=== PATIENT | female | born 1980 | race Caucasian/White ===

== ENCOUNTER 2022-07-29 17:58 | Emergency (ER) | payer OTHER, SELFPAY ==
[2022-07-29 17:59] VITALS: BP 144/87; PULSE 98; RESP 18; TEMP 36.5; O2SAT 98; BMI 35.5
--- NOTE | 2022-07-29 18:28 | CT_ITS ---
PROCEDURE INFORMATION: Exam: CT Abdomen And Pelvis Without Contrast Exam date and time: 07/29/2022 7:34 PM Age: 42 years old Clinical indication: Abdominal pain; Flank; Left; Prior surgery; Surgery date: 6+ months; Surgery type: Tubal ligation; Additional info: L flank pain, h/o kidney stones TECHNIQUE: Imaging protocol: Computed tomography of the abdomen and pelvis without contrast. Radiation optimization: All CT scans at this facility use at least one of these dose optimization techniques: automated exposure control; mA and/or kV adjustment per patient size (includes targeted exams where dose is matched to clinical indication); or iterative reconstruction. COMPARISON: [employer]/O MRI-L-SPINE W/O 08/21/2015 8:43 AM FINDINGS: Liver: Low attenuation hepatic lesions measuring up to 5 mm in diameter are incompletely characterized, but are likely cysts. No followup imaging is recommended. Gallbladder and bile ducts: Normal. No calcified stones. No ductal dilation. Pancreas: Normal. No ductal dilation. Spleen: Normal. No splenomegaly. Adrenal glands: Normal. No mass. Kidneys and ureters: Possible tiny nonobstructing bilateral renal calculi. Stomach and bowel: Unremarkable. No obstruction. No mucosal thickening. Appendix: Unremarkable appendix. Intraperitoneal space: Unremarkable. No free air. No significant fluid collection. Vasculature: The arteries demonstrate minimal atherosclerotic disease. Lymph nodes: Unremarkable. No enlarged lymph nodes. Urinary bladder: Mild left hydronephrosis secondary to a 3 mm calculus at the UVJ protruding into the urinary bladder. Reproductive: Unremarkable as visualized. Bones/joints: Unremarkable. No acute fracture. Soft tissues: Tiny fat containing umbilical hernia. IMPRESSION: 1. Mild left hydronephrosis secondary to a 3 mm calculus at the UVJ protruding into the urinary bladder. 2. Possible tiny nonobstructing bilateral renal calculi.
--- NOTE | 2022-07-29 18:29 | HMH.EDGENADL ---
Discharge Plan Disposition Patient Disposition: Home, Self-Care Condition: Good Prescriptions Prescriptions: New oxycodone-acetaminophen [Percocet] 5-325 mg tablet 1 tab PO Q6H PRN (Reason: pain) Qty: 10 0RF ketorolac 10 mg tablet 10 mg PO Q8H PRN (Reason: pain) Qty: 10 0RF Rx Instructions: received IV toradol in the ER tamsulosin [Flomax] 0.4 mg capsule 0.4 mg PO HS Qty: 10 0RF ondansetron HCl 4 mg tablet 4 mg PO Q8H PRN (Reason: nausea and vomiting) Qty: 10 0RF Activity Restrictions/Add. Instructions Additional Instructions/Restrictions: Flomax as prescribed. Toradol and Percocet as needed for pain. Zofran as needed for nausea. Additional instructions for KIDNEY STONE (URETERAL CALCULUS): See your primary care provider as soon as possible for further evaluation. Drink plenty of fluids. Strain your urine and save any stones you catch. Return immediately if you develop a fever or have uncontrollable vomiting or uncontrollable pain. Additional instructions for CONTROLLED SUBSTANCES: You have been prescribed a medication that is a controlled substance. Controlled substances include pain medications known as opiates and sedative nerve medications known as benzodiazepines. Tramadol, fioricet, and gabapentin are also controlled substances. Some common opiates include: Codeine (such as Tylenol #3) Hydrocodone (Vicodin, Lortab, Lorcet, [place]) Oxycodone (Percocet, Percodan, Oxycodone, Oxy IR) Some common benzodiazepines include: Diazepam (Valium) Lorazepam (Ativan) Alprazolam (Xanax) Clonazepam (Klonopin) Oxazepam (Serax) All of these controlled substances are highly addictive and frequently abused. Misuse can and frequently does lead to addiction as well as overdose and . Medication should be stored in a locked cabinet or other secure storage unit. Do not store the medication in a motor vehicle. Short term supplies, 3 days or less, are prescribed because of the highly addictive nature of the medication. Any of the controlled substance medication NOT taken should be disposed of properly and NOT SAVED. The recommended method of disposing of unused medications is: Place the medicines in a sealable plastic bag. If the medicine is a solid, crush it or add water to dissolve it. Add something undesirable (cat litter, coffee grounds, etc.) Dispose of sealed bag in household trash Do not flush or pour unused medicines down a sink or drain. Controlled substances should not be shared, given away or sold. Because of the addictive nature and frequent abuse, these medications are sometimes stolen. These medications should be kept in a safe place where they cannot be stolen. Do not keep them in your car or purse. Lost or stolen prescriptions for controlled substances WILL NOT BE REFILLED in this emergency department, regardless of whether a police report was filed. Clinical Impressions Clinical Impression: Left ureteral calculus Instructions Patient Instructions: DI for Kidney Stones Discharge ED Provider: Charlie Anguiano General Adult HPI General Chief complaint: Abdominal Pain Stated complaint: kidney stone Time Seen by Provider: 07/29/22 18:22 Mode of Arrival: EMS Source of Information: Patient Limitations: No Limitations Description of Symptoms (Recalled from ER Triage Doc. by RN): PT DESCRTBES SEVERE STABBING LEFT FLANK PAIN THAT RADIATES TO LEFT LOWER ABDOMINAL AREA. PT STATES THAT SHE IS CURRENTLY UNDERGOING ABX THERAPY FOR BRONCHITIS SINCE 07/27. History of Present Illness HPI narrative: Patient brought in by ambulance. States that about 5 PM she was sitting on the bed watching TV when she got sudden onset of pain in her left lower lumbar/flank area radiating around to her left abdomen and into her groin. She went to the bathroom and urinated. She did not see any hematuria. She says after urinating the pain became more severe. No vomiting. No fever.
[2022-07-29 18:31] LABS: Microscopic, Urine URINE MICROSCOPIC (MICROSCOPIC)
[2022-07-29 18:33] LABS: Basophils # 0.1 K/mm3 (0-0.2); Basophils % 0.8 % (0.1-2.0); Eosinophils % 0.2 % (0.1-12.0); Hematocrit 41.4 % (37.0-47.0); Hemoglobin 13.9 g/dL (12.2-16.2); Lymphocytes # 3.6 K/mm3 (0.7-4.5); Lymphocytes % 28.2 % (10-50); Mean Corpuscular HGB Conc 33.5 g/dL (31.8-35.4); Mean Corpuscular Volume 98.4 fl (81-99); Mean Platelet Volume 8.2 fl (7.4-10.4); Monocytes # 0.5 K/mm3 (0.1-1.0); Monocytes % 3.5 % (1.7-9.3); Neutrophils # 8.6 K/mm3 (1.8-7.8); Neutrophils % 67.2 % (37.0-80.0); Platelet Count 253 K/mm3 (142-424); Red Blood Count 4.21 M/mm3 (4.20-5.40); Red Cell Distribution Width 12.8 % (11.5-17.5); White Blood Count 12.8 K/mm3 (4.8-10.8)
[2022-07-29 18:39] LABS: Appearance,Urine CLEAR (Clear); Blood, Urine 3+ (Negative); Color,Urine YELLOW (Yellow); Glucose,Urine (UA) Negative (Negative); Ketones,Urine Negative (Negative); Leukocyte Esterase,Urine Negative (Negative); Nitrate,Urine Negative (Negative); PH,Urine 5.5 (5.0-8.5); Protein,Urine TRACE (Negative); Specific Gravity, Urine >= 1.030 (1.005-1.030); Urobilinogen,Urine 0.2 EU/dl (0.2)
[2022-07-29 18:41] LABS: Alanine Aminotransferase 21 U/L (12-78); Albumin Level 4.8 g/dl (3.5-5.0); Albumin/Globulin Ratio 1.8 (1.1-1.8); Alkaline Phosphatase 57 U/L (38-126); Anion Gap 17.3 mEq/L (5-15); Aspartate Amino Transferase 31 U/L (14-36); Bilirubin,Total 0.3 mg/dl (0.2-1.3); Blood Urea Nitrogen 18 mg/dl (7-17); Calcium 9.9 mg/dl (8.4-10.2); Carbon Dioxide 24 mmol/L (22.0-30.0); Chloride 103 mmol/L (98-107); Creatinine Clearance Estimated 150 mL/min (50-200); Estimated Glomerular Filt Rate 69 ml/min (>60); GFR (African American) 83 ML/MIN (>60); Globulin 2.7 g/dL (1.3-3.2); Glucose 115 mg/dl (74-100); Lipase 64 U/L (23-300); Potassium 3.3 mmoL/L (3.5-5.1); Sodium 141 mmol/L (136-145); Total Protein,Serum 7.5 g/dl (6.3-8.2)
[2022-07-29 18:43] LABS: Urine Pregnancy, HCG Qual. Negative (Negative)
[2022-07-29 18:44] LABS: Bilirubin,Urine 1+ (Negative)
[2022-07-29 20:31] LABS: Bacteria,Urine Trace /lpf; WBC,Urine Occasional #/hpf (0-3)
[2022-07-29 20:58] VITALS: BP 137/78; PULSE 89; RESP 18; TEMP 36.5; O2SAT 98
== END 2022-07-29 21:00 | disposition home or self-care (01) ==
PROVIDERS: Emergency Provider Emergency Medicine
DX: N20.1 Calculus of ureter (principal); Z88.6 Allergy status to analgesic agent; Z72.0 Tobacco use
CPT/HCPCS: 74176; 80053; 81001; 81025; 83690; 85025; 96374; 99284

== ENCOUNTER → 2023-06-14 12:00 | Outpatient (CLI) | payer OTHER, SELFPAY | PROVIDERS: PCP Nurse Practitioner | DX: R10.2 Pelvic and perineal pain (principal) ==

== ENCOUNTER → 2023-06-29 09:46 | Outpatient (CLI) | payer OTHER, SELFPAY ==
--- NOTE | 2023-06-29 09:46 | MM_ITS ---
PROCEDURE INFORMATION: Exam: Bilateral Screening 3D Mammography Exam date and time: 06/29/2023 9:50 AM Age: 43 years old Clinical indication: Baseline. No family history of breast cancer. TECHNIQUE: Imaging protocol: Bilateral Screening tomosynthesis and 2D mammography including computer-aided detection (CAD) when performed. COMPARISON: No relevant prior studies available. FINDINGS: MAMMOGRAPHY: Breast composition: There are scattered areas of fibroglandular density. Mass: None. Architectural distortion: None. Calcifications: No suspicious calcifications. Asymmetric density: None. Skin thickening: None. Axillary adenopathy: None. IMPRESSION: No mammographic evidence of malignancy. Annual screening is recommended unless otherwise clinically indicated. ASSESSMENT: BI-RADS Category 1: Negative
--- NOTE | 2023-06-29 09:46 | US_ITS ---
PROCEDURE: US TRANSVAGINAL CLINICAL INDICATION: pelvic pain COMPARISON: No exams were available for comparison FINDINGS: Transabdominal sonographic images of the pelvis were obtained. UTERUS: 9.0 cm x 5.8 cmx 4.3 cm with a combined endometrial thickness of 9.6mm. Uterus is anteverted. There are multiple small nabothian cysts within the cervix. There is a small amount of fluid within the endometrial cavity. There is a small posterior fibroid measuring 0.7 cm x 0.6 cm x 0.8 cm LEFT OVARY: 3.2 cmx2.5 cmx2.0 cm with a volume of 8.4ml. There are multiple small follicles within the left ovary. The largest follicle measures 1.6 cm by 1.0 cm x 0.8 cm. RIGHT OVARY: 3.5 cmx 2.4 cmx2.6 cm with a volume of 11.5ml. Both ovaries are seen and appear normal. Doppler flow to both ovaries are seen. There is trace fluid in the cul-de-sac. IMPRESSION: 1. Anteverted uterus normal in shape and size. 2. There is a small 0.8 cm posterior fibroid. 3. Both ovaries are seen and appear normal. There are multiple follicles in the left ovary. 4. Trace fluid in the cul-de-sac Dictated by: Luca Darby MD 06/29/2023 11:55 Luca Darby MD in [facility] 06/29/2023 11:55
== END ==
PROVIDERS: PCP Nurse Practitioner; Visit Provider Obstetrics & Gynecology
DX: Z12.31 Encounter for screening mammogram for malignant neoplasm of breast (principal); R10.2 Pelvic and perineal pain; N80.03 Adenomyosis of the uterus; N85.2 Hypertrophy of uterus; N93.9 Abnormal uterine and vaginal bleeding, unspecified
CPT/HCPCS: 76830; 77063; 77067

== ENCOUNTER 2023-10-10 11:54 | Outpatient (CLI) | payer OTHER, SELFPAY ==
[2023-10-10 12:47] LABS: Basophils % 0.4 % (0.1-2.0); Eosinophils # 0.2 K/mm3 (0.0-0.4); Hemoglobin 14.4 g/dL (12.2-16.2); Lymphocytes # 2.5 K/mm3 (0.7-4.5); Lymphocytes % 31.3 % (10-50); Mean Corpuscular HGB Conc 34.3 g/dL (31.8-35.4); Mean Corpuscular Hemoglobin 33.8 pg (27.0-31.2); Mean Corpuscular Volume 98.6 fl (81-99); Mean Platelet Volume 8.1 fl (7.4-10.4); Monocytes # 0.4 K/mm3 (0.1-1.0); Monocytes % 5.5 % (1.7-9.3); Neutrophils # 4.9 K/mm3 (1.8-7.8); Neutrophils % 60.8 % (37.0-80.0); Platelet Count 242 K/mm3 (142-424); Red Blood Count 4.26 M/mm3 (4.20-5.40); Red Cell Distribution Width 12.7 % (11.5-17.5); White Blood Count 8.1 K/mm3 (4.8-10.8)
[2023-10-10 12:56] LABS: Chloride 110 mmol/L (98-107); Sodium 138 mmol/L (136-145)
[2023-10-10 12:59] LABS: Alanine Aminotransferase 17 U/L (12-78); Albumin Level 4.2 g/dl (3.5-5.0); Albumin/Globulin Ratio 1.7 (1.1-1.8); Alkaline Phosphatase 52 U/L (38-126); Aspartate Amino Transferase 21 U/L (14-36); Bilirubin,Total 0.5 mg/dl (0.2-1.3); Blood Urea Nitrogen 8 mg/dl (7-17); Carbon Dioxide 25 mmol/L (22.0-30.0); Estimated Glomerular Filt Rate 79 ml/min (>60); GFR (African American) 95 ML/MIN (>60); Globulin 2.5 g/dL (1.3-3.2); Total Protein,Serum 6.7 g/dl (6.3-8.2)
[2023-10-10 13:00] LABS: Calcium 9.1 mg/dl (8.4-10.2); Glucose 93 mg/dl (74-100)
[2023-10-10 13:17] LABS: HCG,Quantitative < 2 mIU/ml (0-5.42)
== END 2023-10-10 23:59 ==
LOC: LAB 11:55
PROVIDERS: PCP Family Medicine; Visit Provider Obstetrics & Gynecology
DX: Z01.812 Encounter for preprocedural laboratory examination (principal); N94.6 Dysmenorrhea, unspecified; R39.9 Unspecified symptoms and signs involving the genitourinary system
CPT/HCPCS: 36415; 80053; 84702; 85025; 86850; 87086

== ENCOUNTER 2023-10-17 06:15 | Observation (INO) | payer OTHER, SELFPAY ==
[2023-10-16 09:21] VITALS: BMI 36.7
[2023-10-17] VITALS (21 sets, daily range): BP systolic 90–148; BP diastolic 60–94; PULSE 62–108; RESP 14–18; TEMP 35.8–36.8; O2SAT 93–100
[2023-10-17] MEDS: LACTATED RINGERS 1000ML 1,000 ML 100 ML IV (06:34)
--- NOTE | 2023-10-17 07:35 | EXP.HP ---
History of Present Illness *Admission Date: 10/17/23 *Reason for visit:: Hysterectomy *History of present illness: Rachele Gloria is a 43 yo who is presenting today for a laparoscopic assisted vaginal hysterectomy, bilateral salpingectomy of remaining fallopian tubes, Don culdoplasty, retropubic mid urethral sling, and cystoscopy. Possible total abdominal hysterectomy, possible bilateral salpingo-oophorectomy. -C/o of extremely painful heavy menstrual cycles and stress urinary incontinence. -Continues to have very painful menses. -History of tubal -Failed management with OCPs -She has very heavy bleeding requiring super pads and tampons. Her menses are so heavy and painful she misses work each month from them. The pain is causing a stress on her relationship. She has been dealing with this for a long time and has tried several options without success. She has taken NSAIDs and tried heating and cooling pads without any improvement. -She is also complaining of RONN that has been ongoing for about 10years but has recently started getting worse. Reports that today she is already had to change her close and had a second episode of incontinence after that as well. States even when she doesnt have to wear a pad for menses she is wearing one for incontinence. She says this makes her so miserable and is asking for help Allergies: Hydrocodone (Hives) states she does okay with Oxycodone She smokes about 1ppd. she only socially uses EtOh. She has previoulsy tried heroin, meth and cocaine but has not used any substances in >8years. Her only surgery is a right shoulder surgery and tubal ligation. She has had 3 vaginal deliveries. Her children are 22yo, 19yo, and 18yo. She denies having abnormal pap smears. Denies STD history. [facility] Disclaimer: The information contained in this section may have been updated after the patient was seen, as this information can be updated by other users. Medical History Abnormal uterine bleeding (AUB) Depression Enlarged uterus Surgical History Hx of shoulder surgery Hx of tubal ligation Family History Father Hypertension Social History (Updated 10/17/23 @ 06:22 by Sendy Hayward RN) Smoking Status: Current every day smoker tobacco type: cigarettes alcohol intake: former substance use type: former substance user current occupational status: unemployed Travel in the last 8 weeks: None Review of Systems Review of Systems Review of systems (narrative): Review of Systems Constitutional: Denies fever, chills, and sweats Eyes: Denies vision change/ pain Respiratory: Denies cough and shortness of breath Cardiovascular: Denies chest pain and lightheadedness Gastrointestinal: +Dsymenorrhea. Denies abdominal pain. Denies nausea, vomiting. Genitourinary: Denies dysuria. Endorses stress urinary incontinence Musculoskeletal: Denies shoulder pain and back pain Neurological: Denies change in speech or headaches Meds Home Medications and Allergies Home Medications Medication Instructions Recorded Confirmed Type gabapentin 300 mg capsule 600 mg PO HS Pain 06/14/23 10/17/23 History ibuprofen 800 mg tablet 800 mg PO DAILYP PRN Pain 06/14/23 10/17/23 History quetiapine 50 mg tablet (Seroquel) 75 mg PO HS SLEEP 06/14/23 10/17/23 History New Prescriptions to Start Prescriptions: Allergies Allergy/AdvReac Type Severity Reaction Status Date / Time hydrocodone [From Lortab] Allergy Intermediate I-ITCHING Verified 10/17/23 06:18 Exam Data for Last 24 hours Vital signs and Labs for Last 24 Hours: Temp Pulse Resp BP Pulse Ox O2 Del Method 97.7 F 81 18 136/86 99 Room Air 10/17/23 06:21 10/17/23 06:21 10/17/23 06:21 10/17/23 06:21 10/17/23 06:21 10/17/23 06:21 Laboratory Results - last 24 hr 10/17/23 06:25: Blood Type A Positive, Antibody Screen Negative I & O for Last 24 hours: Intake & Output 10/14/23 10/15/23 10/16/23 10/17/23 23:59 23:59 23:59 23:59 Weight 256 lb Constitutional Constitutional: no acute distress *Routine HEENT Exam Head: Present normocephalic Eye: Present EOMI and PERRL ENT: Present mucous membranes moist *Routine Neck Exam Neck: Present supple; Absent lymphadenopathy *Routine Respiratory Exam Respiratory: Present CTA bilaterally *Routine Cardiovascular Exam Cardiovascular: Present RRR *Routine Abdominal Exam Abdominal: Present soft and normoactive bowel sounds; Absent tenderness *Routine Rectal Exam Rectal:: deferred *Routine Genitalia Exam Genitalia:: deferred *Routine Extremities Exam Extremities: Absent cyanosis, clubbing or edema *Routine Skin Exam Skin: Present warm; Absent rash *Routine Neurological Exam Neurological: Present alert and oriented X3 Assessment and Plan *Assessment and plan (1) Fibroid, uterine: Status: Acute Category: Medical Code(s): D25.9 - Leiomyoma of uterus, unspecified (2) Enlarged uterus: Status: Acute Category: Medical Code(s): N85.2 - Hypertrophy of uterus (3) Abnormal uterine bleeding (AUB): Status: Acute Category: Medical Code(s): N93.9 - Abnormal uterine and vaginal bleeding, unspecified (4) Dysmenorrhea: Status: Acute Category: Medical Code(s): N94.6 - Dysmenorrhea, unspecified Plan Plan for LAVH, salpingectomy, TVT, and cystoscopy -TVUS reviewed: Uterus: 9.0 x 5.8 x 4.3 cm. The endometrium measures 9.6 mm. Few fibroids are seen in the uterus; the largest one measures slightly less than 1 cm. Ovaries: The right ovary measure 3.5 x 2.4 x 2.6 cm. The left ovary measure 3.2 x 2.5 x 2.0 cm. Small normal-appearing follicle noted on the left ovary measuring approximately 1.6 cm in greatest dimension. No evidence of adnexal mass or free fluid in the pelvic cavity. -CBC, test, type and screen ordered. -Infection prophylactic antibiotics ordered: Ancef 2g -Risks, benefits, and alternatives of hysterectomy reviewed with the pt. Risks including but not limited to bleeding, infection, and injury to the surrounding structures to include bowel, bladder, ureters, and neurovascular bundles were reviewed with the pt. Hemorrhage requiring life saving blood transfusion that carries a risk of viral infection was explained to the pt and she consented to transfusion if deemed medically necessary. Reviewed the risk of long-term complications/prolonged recovery if an intraoperative complication were to occur. -Reviewed with the pt the risk that hysterectomy would not alleviate her pelvic pain. Pt voiced understanding of the risks and consented to hysterectomy. -Postoperative course reviewed with the patient and explained that she should anticipate staying in the hospital 1-2 days until meeting all DC criteria, voiding, and pain is well controlled. -Teach back method used to ensure that the patient understood all risk of surgery. Consents were signed #Stress Urinary incontinence -Discussed modest weight loss and tobacco cessation. Pt states she is not ready to stop smoking and when she does it causes weight gain and irritability. -Discussed risks of TVT to include bladder perforation, urinary retention, mesh erosion and UTI. Discussed possibility of needing to use a catheter after surgery. Pt voiced understanding and desired to proceed. -Urine culture obtained. -PVR: 10 mL Remain inpatient for 1-2 nights Follow-up 2 and 6 weeks postoperatively
[2023-10-17] MEDS: CEFAZOLIN SODIUM 2 GM in 0.9 % SODIUM CHLORIDE 100 ML IV (07:45)
[2023-10-17] MEDS: LIDOCAINE 1% W/EPI 1:100,000 20ML VIAL 20 ML ×3 (08:05→10:12)
[2023-10-17] MEDS: ROPIVACAINE 0.5% 30ML VIAL 150 MG ×2 (08:14→10:05)
--- NOTE | 2023-10-17 08:30 | P.PNANES_ITS ---
[facility] Disclaimer: The information contained in this section may have been updated after the patient was seen, as this information can be updated by other users. Medical History Abnormal uterine bleeding (AUB) Depression Enlarged uterus Surgical History Hx of shoulder surgery Hx of tubal ligation Family History Father Hypertension Social History (Updated 10/17/23 @ 06:22 by Sendy Hayward RN) Smoking Status: Current every day smoker tobacco type: cigarettes alcohol intake: former substance use type: former substance user current occupational status: unemployed Travel in the last 8 weeks: None [facility] Anesthesia Checklist Patient Identification Patient Identification: Arm Band, Family and Verbal (Name & ) Structural Data Admitted From: Home Planned Operative Procedure/s: LATVH; DEB Salpingectomy; Cysto, TVT Consent for Planned Operative Procedure(s) Verified: Yes Verified Documents: Surgical Consent and History and Physical NPO Status Verified Time NPO: 00:00 Chart Verification Results Verified: CBC, BMP, Type and Screen and HCG Additional verifications Patient : No Anesthesia Reactions: No Hx Blood Transfusions: No Blood Transfusion Reaction: No Cardiovascular Assessment Heart Sounds: S1 & S2 Pulse Rhythm: Irregular Peripheral Edema: No Airway Assessment Mallampati Score:: Class I C-Spine Mobility Assessed: Yes (FROM) TMJ Mobility Assessed: Yes Dentition: Edentulous Neurological Assessment Level of Consciousness: Awake, Alert, Appropriate and Follows Commands Hx Seizures: No Numbness or tingling in extremities: No Anesthesia Plan Anesthesia Risk discussed: Yes Anesthesia Plan: Verified ASA Class: III Anesthesia Type: General
--- NOTE | 2023-10-17 10:21 | HMH.PHAINT1 ---
Pharmacy Intervention Comments: MEDICATION RECONCILIATION COMPLETE USING EXTERNAL PHARMACY FILL HISTORY AND MOST RECENT MD OFFICE VISIT NOTE.
--- NOTE | 2023-10-17 11:12 | EXP.OP.NOTE ---
Date of procedure: 10/17/23 Pre-op Diagnosis:: 1. Fibroid uterus 2. Dysmenorrhea 3. Abnormal uterine bleeding 4. Failed OCPs 5. Heavy uterine bleeding 6. Stress urinary incontinence Post-op Diagnosis:: 1. Fibroid uterus 2. Dysmenorrhea 3. Abnormal uterine bleeding 4. Failed OCPs 5. Heavy uterine bleeding 6. Stress urinary incontinence Procedure performed:: 1. Laparoscopic assisted vaginal hysterectomy 2. Bilateral salpingectomy 3. Don culdoplasty 4. Tension-free retropubic mid urethral sling 5. Cystoscopy Surgeon:: Cornelia Sanches DO Dairy Laboratory Technician(s):: Luca Darby MD ASSISTANT MEN'S SOCCER COACH:: Other (Saldaris) Anesthesia: GETA Estimated blood loss (mL): 150 Operative findings:: Uterine EUA was significant for 8wk size uterus with regular borders at the fundus. Grade 3 uterine descent was appreciated. No gross adnexal masses were appreciated. Laparoscopic exam revealed normal anatomy.? There was noted to be a fibroid uterus. No ovarian masses noted. Bilateral cystic ovaries. No bowel injuries on entry. There was an adhesion of the omentum to the anterior abdominal wall. Did not appear bowel was contained in the adhesion but we were able to complete the surgery without taking down the adhesion. Cystoscopy revealed brisk flow from both ureters without bladder injury Operative note:: Pt was taken back to the OR where GETA was obtained without difficulty. SCDs were placed and found to be working. The patient was placed in dorsal lithotomy position using yellow fin stirrups. The vagina and abdomen was prepped and draped in the normal sterile fashion. An in and out catheter was used to drain the bladder. Weighted speculum was inserted into the vagina to visualize the cervix. A single tooth tenaculum was used to grasp the anterior lip of the cervix and an acorn uterine manipulator was placed. Top gloves were removed and attention was turned to the abdominal portion.? Local anesthetic with epinephrine was injected infraumbilically, an 11mm infraumbilical incision was made sharply. Direct entry into the abdominal cavity was obtained with laparoscopic visualization. A intraabdominal pressure of 6mmHg was observed and CO2 gas was insufflated to create a pneumoperitoneum to a pressure of 15mmHg. The patient was placed in Trendelenburg to facilitate moving the bowel out of the operative field. A second 11mm incision was made to the left, lateral to the rectus muscles with attention to avoid vasculature. Trocar introduced under direct visualization. This process was repeated on the right. Brief abdominal exam revealed normal anatomy as described above. The left fallopian tube was grasped at the fimbriated end. The ureters were visualized bilaterally and noted to be distal from the operative field. The LigaSure coagulation device was inserted and used to clamp, coagulate, and transect the round ligament on the left. The ligasure was used to work serially down the uterus. The round and broad ligament were serially clamped, fulgurated and transected, with attention given to stay proximal to the uterine body. The anterior and posterior leaflet of the broad ligament were and the anterior broad ligament dissection was carried out to complete a bladder flap to the midline. Attention turned to the right adnexa, fimbriated end of the fallopian tube grasped and elevated. Fallopian tube was removed in its entirety with the Ligasure, passed off the operative field. Hemostasis noted. Repeated on the contralateral side. The bladder flap was connected in the middle with careful dissection. The bladder flap bilaterally was created sharply with minimal use of electrocautery to avoid bladder injury. The posterior leaflet of the broad ligament was taken down bilaterally and the uterine vessels were skeletonized. The uterines were coagulated multiple times and the uterus was noted to shahzad. The pedicles were reexamined and noted to be hemostatic. Attention was turned vaginally, a weighted speculum and Pelon retractor were used to identify the cervix. Two Moore tenaculums were used to grasp the anterior and posterior lip of the cervix. 20mL of a solution made up of 1% Lidocaine with epinephrine injected circumferentially around the cervix. Outward traction was applied to the cervix and a scalpel was used to make a circumferential colpotomy at the cervicovaginal junction. The incision was carried down to the paracervical fascia allowing the cervix to separate from the vaginal mucosa.? George and Black scissors were used to initiate and complete dissection into the posterior colpotomy. A long weighted Juanjo speculum was placed in the posterior colpotomy. The uterosacral ligaments were grasped with Glenner clamps, cut and suture ligated bilaterally. These were tagged to be incorporated into the vaginal cuff at a later time. A Glenner clamp was used to slide off the uterus, remaining proximal, clamp, cut and tied with 0 Vicryl the remaining attachments of the cardinal ligaments along with the lower branches of the uterine vessels were clamped, fulgurated, and transected bilaterally.? Attention was turned to the anterior edge. Pickups and Metzenbaum scissors were used to initiate and complete dissection into the anterior colpotomy. A Grandy retractor was placed in the anterior colpotomy. Remaining attachments were identified and suture ligated. The uterus was noted to be free of any other adhesions and was removed. The pedicals were inspected bilaterally and noted to be hemostatic. A moist lap sponge was placed vaginally to retract the bowel. The posterior peritoneum was fixed to the posterior vaginal cuff with a running locking stitch. 0-PDS was used to place a Don stitch for the culdoplasty, incorporating the bilateral uterosacral ligaments. The anterior peritoneum was grasped with an Taina clamp and pursestringed closed. The vaginal cuff was then closed with 0 Vicryl in a running locking fashion. Don culdoplasty was tied to suspend the apex of the vagina. Hemostasis was noted. After changing gloves, the pneumoperitoneum was reestablished, laparoscope was placed and inspection of the cuff. Irrigation of the surgical site and suction reveal hemostasis, images obtained. Brief abdominal survey revealed a normal appearing liver and abdomen, except for previous described pelvic adhesions. Pedicals and cuff reinspected and noted to be hemostatic.?Surgicel was placed prophylactically. The abdominal incisions were closed with a deep single interrupted 0 Vicryl followed by a subcuticular 4-0 Monocryl and Dermabond was placed over the incision. TVT: The suprapubic area was marked for the site of the future trocar passes, approximately 2 cm lateral to the midline. This area was hydrodistended with Neurontin 20 mL and each site. An Allis clamp was placed 1 cm proximal to the urethral meatus and another at the level of the urethrovesical junction along the midline. The mid-urethra was palpated. Local anesthetic with epinephrine was injected in the suburethral and bilaterally in the periurethral space. A vertical incision was then made in the vaginal epithelium at the level of the mid urethra. The vaginal epithelium was dissected off the underlying fascia with Metzenbaum scissors. Allis clamps were used for traction and Metzenbaum scissors were used to dissect the periurethral tunnel to the level of the inferior pubic ramus. This was repeated on the contralateral side. The bladder was confirmed to be empty. The rigid urethral catheter guide was placed in the bladder neck, deviating the bladder to the patient's left, with the trocar being passed on the patient's right. The [employer] advantage transvaginal tape trocar was placed in the previously dissected periurethral tunnel and passed retropubically, hugging the back of the pubic bone, and exiting through the suprapubic skin site. The vaginal epithelium was then inspected and no perforation was seen. Passage of the trocar was then repeated on the patient's left side, this time with the bladder deviated to the right with the rigid urethral catheter guide. The vaginal epithelium was inspected and no perforation was seen. There was however a small tear in the vaginal epithelium near the urethra. The Carmona was removed and a cystoscopy performed. A full survey of the bladder was performed again, demonstrating no evidence of trocar perforation, other injury, bleeding, or lesions. Brisk bilateral efflux of clear urine was visualized from the ureteral orifices. The urethra was intact without evidence of injury. The cystoscope was removed, the Carmona replaced, and the bladder drained. The mesh was pulled to a tension free position in the mid urethra. An Allis was used to bill 1 cm in the midline to ensure that the mesh was not too tight/restrictive. The plastic sheaths were removed. A repeat vaginal exam confirmed that there were no vaginal perforations with the mesh. Curved Black scissors were used to ensure tension-free mesh placement in the midline, setting the sling in place. Excess mesh was removed suprapubically and these sites are closed with Dermabond. The suburethral incision was closed with 2-0 Vicryl mattress sutures, and a running stitch taking care to not incorporate the mesh into the closure. Hemostasis was excellent. The counts were correct. The patient tolerated the procedure well. She was brought to the recovery room in stable condition. Condition: stable Disposition: floor Specimens:: Uterine body, cervix, bilateral fallopian tubes Complications:: None
--- NOTE | 2023-10-17 11:14 | EXP.ANES.I ---
[facility] Anesthesia Record Part I Anesthesia Record I Intake, IV Amount: 1,800 Hydration: Adequate Estimated blood loss (mL): 150 Urine output (mL): 0 Blood Products used (#): none Blood Pressure: 118/65 SaO2: 98 Pulse Rate: 105 Airway Patency: Patent Respiratory Rate: 18 Temperature: 96.4 F Patient is:: Awake (Talking) and Stable Stable to PACU at:: 11:13
[2023-10-17] MEDS: MEPERIDINE 25MG/ML 1ML SYRINGE 25 MG IV (11:20)
[2023-10-17] MEDS: MORPHINE 2MG/ML SYRINGE 2 MG IV ×3 (11:23→11:36)
[2023-10-17] MEDS: LACTATED RINGERS 1000ML 1,000 ML 125 ML IV ×2 (12:14→21:21)
[2023-10-17] MEDS: ACETAMINOPHEN 500MG TAB 1000 MG PO ×3 (12:14→23:42)
[2023-10-17] MEDS: KETOROLAC 30MG/ML VIAL 30 MG IV ×3 (12:14→23:41)
--- NOTE | 2023-10-17 12:47 | EXP.ANES.I ---
[facility] Anesthesia Record Part I Anesthesia Record I Intake, IV Amount: 300 Hydration: Adequate Estimated blood loss (mL): 10 Urine output (mL): 200 Blood Products used (#): none Blood Pressure: 116/77 SaO2: 98 Pulse Rate: 108 Airway Patency: Patent Respiratory Rate: 14 Temperature: 97.1 F Patient is:: Awake (Talking) and Stable Stable to PACU at:: 12:51
[2023-10-17] MEDS: HYDROMORPHONE 2MG/ML SYRINGE 1 MG IV ×2 (13:05→22:35)
[2023-10-17 13:07] LABS: Microscopic,Cath URINE MICROSCOPIC (MICROSCOPIC)
[2023-10-17 13:08] LABS: Appearance,Urine/Cath SL CLOUDY (Clear); Bilirubin,Cath Negative (Negative); Blood, Urine/Cath TRACE-I (Negative); Color,Urine/Cath YELLOW (Yellow); Glucose,Urine/Cath (UA) Negative (Negative); Ketones,Urine/Cath TRACE (Negative); Leukocyte Esterase,Cath Negative (Negative); Nitrate,Cath Negative (Negative); PH,Urine/Cath 5.5 (5.0-8.5); Protein,Urine/Cath Negative (Negative); Specific Gravity, Urine/Cath >= 1.030 (1.005-1.030); Urobilinogen,Cath 0.2 EU/dl (0.2)
[2023-10-17 13:19] LABS: Bacteria,Urine/Cath TRACE /lpf; Mucus,Urine/Cath Trace /lpf; Squamous Epithelial Ur./Cath Occasional #/hpf (0-5)
[2023-10-17] MEDS: CEFAZOLIN SODIUM 1 GM in 0.9 % SODIUM CHLORIDE 50 ML IV ×2 (16:00→23:42)
[2023-10-17] MEDS: OXYCODONE 5MG IMMEDIATE RELEASE TABLET 5 MG PO ×2 (16:00→21:21)
--- NOTE | 2023-10-17 19:17 | PC.NURSE ---
All care and documentation by Demetri Bishop RN was completed under my direct supervision.
[2023-10-17] MEDS: QUETIAPINE 25MG TABLET 75 MG PO (21:21)
[2023-10-17] MEDS: GABAPENTIN 600MG TABLET 600 MG PO (21:21)
[2023-10-17] MEDS: CONJUGATED ESTROGENS 0.625MG/GM 30GM APPLICATOR VG (21:22)
[2023-10-18] VITALS: BP 101/78; PULSE 85; RESP 18; TEMP 36.6; O2SAT 98
[2023-10-18 04:00] VITALS: BP 99/44; PULSE 66; RESP 18; TEMP 36.8; O2SAT 94
--- NOTE | 2023-10-18 04:30 | PC.NURSE ---
Patient has done well this shift, voided adequately, minimal vaginal bleeding, pain has been controlled. bilateral lung sounds clear throughout, bowel sounds active in all quadrants. patient has used incentive spirometer multiple times throughout the shift. lap incision sites still intact with dermabond, no drainage noted. patient has rested well this shift, patient denies needs at this time.
[2023-10-18] MEDS: ACETAMINOPHEN 500MG TAB 1000 MG PO (05:20)
[2023-10-18] MEDS: KETOROLAC 30MG/ML VIAL 30 MG IV (05:20)
[2023-10-18] MEDS: OXYCODONE 5MG IMMEDIATE RELEASE TABLET 5 MG PO ×2 (05:21→09:27)
[2023-10-18] MEDS: LACTATED RINGERS 1000ML 1,000 ML 125 ML IV (05:34)
[2023-10-18 06:41] LABS: Basophils # 0.1 K/mm3 (0-0.2); Basophils % 0.3 % (0.1-2.0); Eosinophils % 0.2 % (0.1-12.0); Hematocrit 38.7 % (37.0-47.0); Hemoglobin 12.8 g/dL (12.2-16.2); Lymphocytes # 2.9 K/mm3 (0.7-4.5); Lymphocytes % 19.1 % (10-50); Mean Corpuscular HGB Conc 33.1 g/dL (31.8-35.4); Mean Corpuscular Hemoglobin 33.2 pg (27.0-31.2); Mean Corpuscular Volume 100.3 fl (81-99); Mean Platelet Volume 7.7 fl (7.4-10.4); Monocytes # 0.8 K/mm3 (0.1-1.0); Neutrophils # 11.5 K/mm3 (1.8-7.8); Neutrophils % 75.4 % (37.0-80.0); Platelet Count 266 K/mm3 (142-424); Red Blood Count 3.86 M/mm3 (4.20-5.40); Red Cell Distribution Width 12.7 % (11.5-17.5); White Blood Count 15.2 K/mm3 (4.8-10.8)
[2023-10-18 06:44] LABS: Chloride 109 mmol/L (98-107); Potassium 3.9 mmoL/L (3.5-5.1); Sodium 139 mmol/L (136-145)
[2023-10-18 06:45] LABS: MANUAL DIFFERENTIAL MANUAL DIFFERENTIAL (MANUAL DIFF)
[2023-10-18 06:47] LABS: Blood Urea Nitrogen 10 mg/dl (7-17); Creatinine Clearance Estimated 149 mL/min (50-200); Estimated Glomerular Filt Rate 69 ml/min (>60); GFR (African American) 83 ML/MIN (>60)
[2023-10-18 06:48] LABS: Anion Gap 8.9 mEq/L (5-15); Calcium 8.5 mg/dl (8.4-10.2); Carbon Dioxide 25 mmol/L (22.0-30.0); Glucose 103 mg/dl (74-100)
[2023-10-18 07:50] VITALS: O2SAT 97
[2023-10-18 08:00] VITALS: BP 93/48; PULSE 67; RESP 17; TEMP 36.7; O2SAT 97
--- NOTE | 2023-10-18 08:20 | PC.NURSE ---
dR. Menon AT BEDSIDE
--- NOTE | 2023-10-18 08:33 | P.DS_ITS ---
General Admission date:: 10/17/23 Discharge date: 10/18/23 HPI HPI HPI: Rachele Gloria is a 43 yo who is presenting today for a laparoscopic assisted vaginal hysterectomy, bilateral salpingectomy of remaining fallopian tubes, Don culdoplasty, retropubic mid urethral sling, and cystoscopy. Possible total abdominal hysterectomy, possible bilateral salpingo-oophorectomy. -C/o of extremely painful heavy menstrual cycles and stress urinary incontinence. -Continues to have very painful menses. -History of tubal -Failed management with OCPs -She has very heavy bleeding requiring super pads and tampons. Her menses are so heavy and painful she misses work each month from them. The pain is causing a stress on her relationship. She has been dealing with this for a long time and has tried several options without success. She has taken NSAIDs and tried heating and cooling pads without any improvement. -She is also complaining of RONN that has been ongoing for about 10years but has recently started getting worse. Reports that today she is already had to change her close and had a second episode of incontinence after that as well. States even when she doesnt have to wear a pad for menses she is wearing one for incontinence. She says this makes her so miserable and is asking for help Allergies: Hydrocodone (Hives) states she does okay with Oxycodone She smokes about 1ppd. she only socially uses EtOh. She has previoulsy tried heroin, meth and cocaine but has not used any substances in >8years. Her only surgery is a right shoulder surgery and tubal ligation. She has had 3 vaginal deliveries. Her children are 22yo, 19yo, and 18yo. She denies having abnormal pap smears. Denies STD history. Hospital Course Hospital Course Hospital Course: Rachele Gloria is a 43-year-old postop day #1 from laparoscopic assisted vaginal hysterectomy, bilateral salpingectomy, TVT, and cystoscopy. The patient is doing well and emptying her bladder completely. She denies any dysuria, hematuria, or problems with voiding. The patient reports she does have some abdominal pain/cramping but that the pain regimen that she is currently taking is working well for management. The patient is ambulating without difficulty. She is tolerating p.o. without nausea or vomiting. She desires discharge home. Routine discharge instructions reviewed with the patient in detail and she voiced understanding. All questions and concerns were addressed to her and her spouse's satisfaction Exam Data for Last 24 hours Vital signs and Labs for Last 24 Hours: Temp Pulse Resp BP Pulse Ox O2 Del Method 98.0 F 67 17 93/48 L 97 Room Air 10/18/23 08:00 10/18/23 08:00 10/18/23 08:00 10/18/23 08:00 10/18/23 08:00 10/18/23 08:00 Laboratory Results - last 24 hr 10/17/23 09:40: Urine Color Yellow, Urine Appearance Sl cloudy, Urine pH 5.5, Ur Specific [place] >= 1.030, Urine Protein Negative, Urine Glucose (UA) Negative, Urine Ketones Trace, Urine Blood Trace-i, Urine Nitrate Negative, Urine Bilirubin Negative, Urine Urobilinogen 0.2, Ur Leukocyte Esterase Negative, Urine RBC None, Urine WBC None, Ur Squamous Epith Cells Occasional, Urine Bacteria Trace 10/18/23 05:49: WBC 15.2 H, RBC 3.86 L, Hgb 12.8, Hct 38.7, MCV 100.3 H, MCH 33. 2 H, MCHC 33.1, RDW 12.7, Plt Count 266, MPV 7.7, Neut % (Auto) 75.4, Lymph % (Auto) 19.1, [place] % (Auto) 5.0, Eos % (Auto) 0.2, Baso % (Auto) 0.3, Neut # (Auto) 11.5 H, Lymph # (Auto) 2.9, [place] # (Auto) 0.8, Eos # (Auto) 0.0, Baso # (Auto) 0.1, Sodium 139, Potassium 3.9, Chloride 109 H, Carbon Dioxide 25, Anion Gap 8.9, BUN 10, Creatinine 0.90, Estimated Creat Clear 149, Estimated GFR 69, Est GFR ( Amer) 83, Glucose 103 H, Calcium 8.5 I & O for Last 24 hours: Intake & Output 10/15/23 10/16/23 10/17/23 10/18/23 23:59 23:59 23:59 23:59 Intake Total 3541 / 3541 Output Total 950 / 950 Balance 2591 / 2591 Weight 256 lb Constitutional Constitutional: no acute distress *Routine HEENT Exam Head: Present normocephalic Eye: Present EOMI and PERRL ENT: Present mucous membranes moist *Routine Neck Exam Neck: Present supple; Absent lymphadenopathy *Routine Respiratory Exam Respiratory: Present CTA bilaterally, able to speak in complete sentences and symmetric chest movement; Absent decreased breath sounds, prolonged expiratory phase, rales, respiratory distress, stridor, wheezes, crackles or diminished air movement Comments: Patient is using her incentive spirometer well. Demonstrated use and using it appropriately. *Routine Cardiovascular Exam Cardiovascular: Present RRR *Routine Abdominal Exam Abdominal: Present soft and normoactive bowel sounds; Absent tenderness *Routine Extremities Exam Extremities: Absent cyanosis, clubbing or edema *Routine Skin Exam Skin: Present warm; Absent rash Comments: 3 well-healing laparoscopic incisions. 2 well-healing TVT incisions at the mons. All incisions are covered by Dermabond. No redness, drainage, bleeding, or signs of infection. *Routine Neurological Exam Neurological: Present alert and oriented X3 Results Data Completed and Pending Labs on day of discharge: Labs from last 24 hours 10/18/23 10/17/23 05:49 09:40 WBC 15.2 H RBC 3.86 L Hgb 12.8 Hct 38.7 MCV 100.3 H MCH 33.2 H MCHC 33.1 RDW 12.7 Plt Count 266 MPV 7.7 Neut % (Auto) 75.4 Lymph % (Auto) 19.1 Meeker % (Auto) 5.0 Eos % (Auto) 0.2 Baso % (Auto) 0.3 Neut # (Auto) 11.5 H Lymph # (Auto) 2.9 Meeker # (Auto) 0.8 Eos # (Auto) 0.0 Baso # (Auto) 0.1 Sodium 139 Potassium 3.9 Chloride 109 H Carbon Dioxide 25 Anion Gap 8.9 BUN 10 Creatinine 0.90 Estimated Creat Clear 149 Estimated GFR 69 Est GFR ( Amer) 83 Glucose 103 H Calcium 8.5 Urine Color Yellow Urine Appearance Sl cloudy Urine pH 5.5 Ur Specific [place] >= 1.030 Urine Protein Negative Urine Glucose (UA) Negative Urine Ketones Trace Urine Blood Trace-i Urine Nitrate Negative Urine Bilirubin Negative Urine Urobilinogen 0.2 Ur Leukocyte Esterase Negative Urine RBC None Urine WBC None Ur Squamous Epith Cells Occasional Urine Bacteria Trace DS: Diagnosis Discharge Diagnosis (1) Fibroid, uterine: Status: Acute Code(s): D25.9 - Leiomyoma of uterus, unspecified (2) Enlarged uterus: Status: Acute Code(s): N85.2 - Hypertrophy of uterus (3) Abnormal uterine bleeding (AUB): Status: Acute Code(s): N93.9 - Abnormal uterine and vaginal bleeding, unspecified (4) Dysmenorrhea: Status: Acute Code(s): N94.6 - Dysmenorrhea, unspecified (5) H/O hysterectomy for benign disease: Status: Acute Code(s): Z90.710 - Acquired absence of both cervix and uterus (6) RONN (stress urinary incontinence, female): Status: Acute Code(s): N39.3 - Stress incontinence (female) (male) Problem details: Postop day #1 from procedures listed above Patient is doing very well and desires discharge home today. Discharge instructions reviewed with the patient in detail and she voiced understanding Surgical EBL was appropriate and hemoglobin drop was 14.4-->12.8. Labs reviewed this morning and all appropriate Encouraged tobacco cessation Follow-up in the office at 2 weeks and 6 weeks postop Meds Home Medications and Allergies Home Medications Medication Instructions Recorded Confirmed Type gabapentin 300 mg capsule 600 mg PO HS Pain 06/14/23 10/17/23 History quetiapine 50 mg tablet (Seroquel) 75 mg PO HS SLEEP 06/14/23 10/17/23 History conjugated estrogens 0.625 mg/gram 0.625 mg vaginal BID #30 grams 10/18/23 Rx vaginal cream (Premarin) ibuprofen 800 mg tablet 800 mg PO DAILYP PRN Pain #30 tabs 10/18/23 Rx oxycodone 5 mg tablet 5 mg PO Q8H PRN pain #20 tabs 10/18/23 Rx sennosides 8.6 mg tablet (Senna 8.6 mg PO BIDP PRN Constipation 10/18/23 Rx Lax) #60 tabs simethicone 125 mg tablet 125 mg PO DAILY PRN abdominal 10/18/23 Rx distention #60 tabs New Prescriptions to Start Prescriptions: conjugated estrogens [Premarin] Cornelia Sanches ibuprofen Cornelia Sanches oxycodone Cornelia Sanches sennosides [Senna Lax] Cornelia Sanches simethicone Cornelia Sanches Allergies Allergy/AdvReac Type Severity Reaction Status Date / Time hydrocodone [From Lortab] Allergy Intermediate I-ITCHING Verified 10/17/23 06:18 Discharge Plan Disposition Patient Disposition: Home, Self-Care Follow up Plan Follow up with: Cornelia Sanches DO [Staff Physician] - 2 weeks Prescriptions/Medication Reconciliation: New Premarin 0.625 mg/gram Cream 0.625 mg vaginal BID Qty: 30 2RF sennosides [Senna Lax] 8.6 mg Tablet 8.6 mg PO BIDP PRN (Reason: Constipation) Qty: 60 2RF oxycodone 5 mg tablet 5 mg PO Q8H PRN (Reason: pain) Qty: 20 0RF simethicone 125 mg tablet 125 mg PO DAILY PRN (Reason: abdominal distention) Qty: 60 2RF Continued gabapentin 300 mg capsule 600 mg PO HS quetiapine [Seroquel] 50 mg tablet 75 mg PO HS ibuprofen 800 mg tablet 800 mg PO DAILYP PRN (Reason: Pain) Qty: 30 3RF Problem Reconciliation Problems Reviewed?: Yes Patient Discharge Instructions ACTIVITY: Ambulate as tolerated and Limited activity DIET: regular diet Additional Instructions: Hysterectomy Discharge You had a laparoscopic assisted vaginal hysterectomy, bilateral salpingectomy, retropubic mid urethral tension-free sling, and cystoscopy. This means we removed your uterus, cervix, and both fallopian tubes. We then placed a small piece of mesh around your mid urethra in a tension-free manner to manage your stress urinary incontinence. We also used a camera to look in your bladder after the surgery and there were no problems with your bladder wall or ureters. There were no complications with your surgery. We have called several medications in for you and they are detailed below as well as discharge instructions. You will follow-up in office for a postop visit at 1 weeks and at 6 weeks. At your 6- week postop appointment you will have a pelvic exam to ensure your cuff is healing well. If you have any questions, please call the office. During the time leading up to your follow-up please remember to keep your incisions clean and dry. This means taking a shower daily and letting warm soapy water run over the incisions. You do not need to scrub the surgical glue off it is meant to be a water tight, antibacterial barrier. Activity: - No lifting more than 10 lbs for 6 weeks. - No driving while you are taking narcotic pain medication. - You have 5 total incisions on your abdomen and above your pubic bone that are closed with stitches and surgical glue. The glue should come off within 2 weeks. You can scrub gently in the shower - You have stitches under your skin which will dissolve over the next 4-6 weeks as your body heals - Keep your wound clean and dry, ok to wash with soap and water but pat thoroughly dry Medications: - Ibuprofen (a nonsteroidal anti-inflammatory) for pain. Please take the ibuprofen scheduled for the first 2-3 days as this will help control your pain - Oxycodone (a narcotic pain medication) use the narcotic pain medication for breakthrough or severe pain. You will want to stop the narcotic pain medication first. Narcotic pain medication can be habit forming so please only use this medication if you need it. - Senna (a stool softener) use this medication for constipation as needed. Narcotics can increase your risk for constipation - Simethicone: a gas medication for bloating and gas pain you may experience in the next 1-2 weeks. - Vaginal Estrogen. Please apply nightly for 2 weeks to assist the tissues with healing. After two weeks you can transition to application twice weekly Please call the office or return to the ER if you have any of the followin. Bleeding more than 1 pad an hour for 2 hours 2. Pain that does not respond to your narcotic pain medication 3. Dizziness or lightheadedness such that you lose consciousness 4. Abnormal discharge that looks like pus from your incisions Questions or concerns: It is my privilege to be your doctor. Please let me know if you have other questions or concerns. Cornelia Sanches DO [facility] [place], [place] [address] Providers Primary Care Provider: Osmel Miller Admjessica Provider: Cornelia Sanches Attending Provider: Cornelia Sanches
[2023-10-18 08:35] LABS: Lymphocytes % 17 % (10-50); Monocytes % 11 % (2-9); Neutrophils % 69 % (42-76); Total Cells Counted 100
[2023-10-18 08:37] LABS: Anisocytosis 1+; Macrocytosis 1+; Platelet Estimate Normal
[2023-10-18] MEDS: CONJUGATED ESTROGENS 0.625MG/GM 30GM APPLICATOR VG (09:00)
[2023-10-18] MEDS: SENNOSIDES 8.6MG/DOCUSATE 50MG TABLET 1 TAB PO (09:27)
--- NOTE | 2023-10-19 09:04 | EXP.ANES.II ---
[facility] Anesthesia Record Part II Anesthesia Record Part II Discharge Time: 11:38 Destination: Surgical Day Care (OP Surgery) PACU nurse assessment reviewed?: Yes Patient Condition:: Good Anesthesia Complications:: None Swallowing reflex intact?: Yes Airway Patency: Patent Cyanosis?: No Blood Pressure: 132/86 SaO2: 93 Respiratory Rate: 15 Pulse Rate: 81 Temperature: 97.7 F Mental Status: Alert & Oriented Pain level:: 8 Nausea and/or vomitting:: None Intake, IV Amount: 0 Hydration: Adequate
[2023-10-19 09:05] VITALS: BP 132/86; PULSE 81; RESP 15; TEMP 36.5; O2SAT 93
== END 2023-10-18 10:45 | disposition home or self-care (01) ==
LOC: OB 06:16
PROVIDERS: Admitting Provider Obstetrics & Gynecology; PCP Family Medicine; Visit Provider Obstetrics & Gynecology
PROC: 0UT9FZZ Resection of Uterus, Via Natural or Artificial Opening With Percutaneous Endoscopic Assistance (ICD-10-PCS; CPT 58552; principal; 2023-10-17 07:30)
PROC: (CPT 58552; 2023-10-17 07:30)
DX: D25.9 Leiomyoma of uterus, unspecified (principal); F32.A Depression, unspecified; F17.210 Nicotine dependence, cigarettes, uncomplicated; N39.3 Stress incontinence (female) (male); Z71.6 Tobacco abuse counseling; N92.0 Excessive and frequent menstruation with regular cycle
CPT/HCPCS: 58552; 57020; 51992; 52000; 36415; 80048; 81001; 85007; 85025; 86850; 96374; J3490; C1771; G0378; J2405